=== PATIENT | male | born 1970 | race Caucasian/White ===

== ENCOUNTER 2024-08-27 09:33 | Outpatient (CLI) | payer OTHER, SELFPAY ==
--- NOTE | 2024-08-27 09:51 | XR_ITS ---
WS: [id number] Exam: XR chest 3V [id number] Date/Time of Exam: 08/27/2024 9:55 AM Reason For Exam: CHRONIC COUGH Comparison 02/17/2015. The lungs are fully expanded and clear. Cardiomediastinal silhouette is unremarkable. No pleural effu sions. Bony structures are intact. Healed fracture of the RIGHT clavicle with plate and screw fixatio n. XR/XR chest 3V [id number] IMPRESSION: 1. No acute cardiopulmonary finding.
--- NOTE | 2024-08-27 09:51 | XR_ITS ---
WS: [id number] Exam: [place] [id number] Date/Time of Exam: 08/27/2024 9:56 AM Reason For Exam: POSTPROCEDURAL STATUS Comparison 02/17/2015. There is a healed fracture of the RIGHT clavicle with plate and screw fixation. The distal end of the plate has fractured. This is unchanged. The remaining aspects of the plate and screws are unremarkab le. XR/[place] [id number] IMPRESSION: 1. Healed fracture of the RIGHT clavicle with plate and screw fixation. See abo ve discussion.
== END 2024-08-27 09:34 | disposition home or self-care (01) ==
PROVIDERS: PCP Nurse Practitioner Family; Visit Provider Nurse Practitioner Family
DX: S42.001D Fracture of unspecified part of right clavicle, subsequent encounter for fracture with routine healing (principal); R05.3 Chronic cough; Z98.890 Other specified postprocedural states; X58.XXXA Exposure to other specified factors, initial encounter
CPT/HCPCS: 71047; 73000